=== PATIENT | female | born 1990 | race Caucasian/White ===

== ENCOUNTER → 2024-12-03 15:24 | Outpatient (REF) | payer BC, SELFPAY | LOC: RAD 15:24 | PROVIDERS: ATTENDING PHYSICIAN Nurse Practitioner Family; FAMILY PHYSICIAN Internal Medicine | DX: N94.6 Dysmenorrhea, unspecified (principal) | CPT/HCPCS: 76830; 76856 ==

== ENCOUNTER → 2025-01-23 12:47 | Outpatient (REF) | payer BC, SELFPAY | LOC: HWRAD 12:47 | PROVIDERS: ATTENDING PHYSICIAN Nurse Practitioner Family; FAMILY PHYSICIAN Internal Medicine | DX: N83.201 Unspecified ovarian cyst, right side (principal) | CPT/HCPCS: 76856 ==

== ENCOUNTER → 2025-04-29 16:08 | Outpatient (REF) | payer BC, SELFPAY | LOC: RAD 16:08 | PROVIDERS: ATTENDING PHYSICIAN Nurse Practitioner Family; FAMILY PHYSICIAN Internal Medicine | DX: N83.209 Unspecified ovarian cyst, unspecified side (principal) | CPT/HCPCS: 76856 ==

== ENCOUNTER → 2025-06-07 14:48 | Outpatient (REF) | payer BC, SELFPAY | LOC: MRI 3T 14:48 | PROVIDERS: ATTENDING PHYSICIAN Obstetrics & Gynecology; FAMILY PHYSICIAN Nurse Practitioner | DX: R93.89 Abnormal findings on diagnostic imaging of other specified body structures (principal) | CPT/HCPCS: 72197; A9575 ==

== ENCOUNTER 2025-07-05 06:39 | Day surgery (SDC) | payer BC, SELFPAY ==
[2025-07-05] VITALS (9 sets, daily range): BP systolic 92–127; BP diastolic 58–85; BMI 27.3
[2025-07-05] MEDS: NORMOSOL-R/PLASMALYTE-A 1000 IV (12:44)
[2025-07-05] MEDS: NEURONTIN 300 MG PO (12:44)
[2025-07-05] MEDS: TYLENOL 1000 MG PO (12:45)
--- NOTE | 2025-07-05 15:56 | W.IMMPOSTOP ---
Surgical Immed Post Op Note
-
Primary Surgeon: Trinidad Fermin DO
Assistans: Lata Suero, MARINE FARMER and JOSE Guillen
Pre-op Diagnosis: Mildly complex left adnexal cyst
Post-op Diagnosis: same, endometriosis implant right ovary
Procedure Performed: robotic laparoscopic left ovarian cystectomy, fulgeration endometriosis right ovary, pelvic washings
Anesthesia Type: general ET D. [place]
Specimen / Cultures: 1. pelvic washings 2. left ovarian cyst wall 3. left ovarian biopsy for frozen section
Estimated Blood Loss: 5ml
Urine output 200ml
Complications: none
Operative Findings: normal appearing uterus, tubes. Right ovary with tiny 2mm superficial brown-collins pigmentation suspicious for endometriosis.
Left ovary with smooth 6-7cm ovarian cyst. Small granular tissue tuft inside left ovarian cyst wall-sent to path (suspect benign ).
Counts correct times 2.
Stable to recovery.
[2025-07-05] MEDS: DILAUDID 0.25 MG IV (16:50)
[2025-07-05] MEDS: ZOFRAN 4 MG IV (18:20)
== END 2025-07-05 18:58 | disposition home or self-care (01) ==
LOC: SDS 06:39
PROVIDERS: ATTENDING PHYSICIAN Obstetrics & Gynecology
DX: N80.9 Endometriosis, unspecified (principal); D27.1 Benign neoplasm of left ovary; D19.9 Benign neoplasm of mesothelial tissue, unspecified
CPT/HCPCS: 58662; 86850; 86900; 86901; 88112; 88304; 88305; 88331